=== PATIENT | male | born 1970 | race Two or more races ===

== ENCOUNTER 2016-12-31 00:42 | Emergency (ER) | payer SELFPAY ==
[~2016-12-31] VITALS: Ht 172.7 cm; Wt 81.6 kg
[2016-12-31 00:55] VITALS: BP 125/67
--- NOTE | 2016-12-31 02:02 | NUR ---
IV removed. Catheter intact and site benign. Pressure and 4x4 applied to site. No bleeding noted. Patient discharged to home in stable condition. Written and verbal after care instructions given. Patient verbalizes understanding of instruction. VSS, NAD noted on DC. Denies complaint on DC.
== END 2016-12-31 02:04 | disposition home or self-care (01) ==
LOC: ER 00:44
DX: F10.129 Alcohol abuse with intoxication, unspecified (principal); R07.89 Other chest pain; I10 Essential (primary) hypertension; Z90.89 Acquired absence of other organs
CPT/HCPCS: 99283; A4606; Z7610